=== PATIENT | male | born 1970 | race Caucasian/White ===

== ENCOUNTER 2024-02-16 05:35 | Day surgery (SDC) | payer OTHER ==
[2024-02-10 09:18] LABS: HEMATOCRIT 42.9 % (39.0-48.0); HEMOGLOBIN 14.9 g/dL (13-16.00); MEAN CELL VOLUME 84.1 fL (80.0-100.00); MEAN CORPUSCULAR HEMOGLOBIN 29.2 pg (27.00-32.0); MEAN CORPUSCULAR HGB CONC 34.7 g/dl (32.0-36.0); PLATELET COUNT 253 K/uL (150-450); RED CELL DISTRIBUTION WIDTH 14.9 % (11.5-14.5)
[2024-02-10 09:45] LABS: INR 1.02; PARTIAL THROMBOPLASTIN TIME 29.7 SECONDS (22.0-34.0); PROTHROMBIN TIME 10.7 SECONDS (9.0-11.5)
[2024-02-10 09:46] LABS: CALCIUM 9.1 mg/dL (8.5-10.1); CREATININE SERUM 0.68 mg/dL (0.70-1.30); GFR 121.52; POTASSIUM 4.29 mEq/L (3.5-5.1)
[2024-02-10 10:01] LABS: URINE APPEARANCE Clear; URINE BILIRRUBIN Negative (NEGATIVE); URINE BLOOD Trace; URINE COLOR Yellow; URINE GLUCOSE Negative (NEGATIVE); URINE LEUKOCYTE Negative; URINE NITRATE Negative; URINE PROTEIN Negative (NEGATIVE)
[2024-02-10 10:07] LABS: URINE RBC 7.7 uL (0.0-20.8); URINE WBC 2.4 uL (0.0-23.2)
[2024-02-10 10:19] LABS: URINE EPITHELIAL CELLS 0.6 uL (0.0-38.8)
[~2024-02-16] VITALS: Ht 188 cm; Wt 145.1 kg
[~2024-02-16 05:35] MED LIST: FLEXERIL10 MG PO; LASIX20 MG PO; MEDROL4 MG PO; MOTRIN800 MG PO; NABUMETONE750 MG PO; NEURONTIN600 MG PO; ZESTRIL5 MG PO
[2024-02-16] MEDS ORDERED: CEFTRIAXONE SODIUM 2,000 MG VIAL ONE (07:04)
[2024-02-16] MEDS ORDERED: ENOXAPARIN SODIUM 40 MG/0.4 ML SYRINGE SUBCUTANEO ONE (07:04)
[2024-02-16] MEDS ORDERED: BUPIVACAINE HCL/MPF 0.5% 30ML VIAL ONE (08:15)
[2024-02-16] MEDS ORDERED: METRONIDAZOLE/SODIUM CHLORIDE 500 MG/100 ML PIGGYBACK IV ONE (08:26)
[2024-02-16] MEDS ORDERED: BUPIVACAINE HCL 30 ML VIAL IJ SCH (08:45)
[2024-02-16] MEDS ORDERED: ENOXAPARIN SODIUM 40 MG/0.4 ML SYRINGE SUBCUTANEO SCH (08:45)
[2024-02-16] MEDS ORDERED: CEFTRIAXONE SODIUM 2,000 MG VIAL IV SCH (08:45)
[2024-02-16] MEDS ORDERED: METRONIDAZOLE/SODIUM CHLORIDE 500 MG/100 ML PIGGYBACK IV SCH (08:45)
[2024-02-16] MEDS ORDERED: SUGAMMADEX SODIUM 200 MG/2 ML VIAL IV ONE (10:39)
[2024-02-16] MEDS ORDERED: SUGAMMADEX SODIUM 200 MG/2 ML VIAL IV SCH (10:45)
[2024-02-16] MEDS ORDERED: PERCOCET 5-3251 EACH PO (11:23)
[2024-02-16] MEDS ORDERED: NEURONTIN300 MG PO (11:27)
[2024-02-16] MEDS ORDERED: POLY119PG PO (11:29)
[2024-02-16] MEDS ORDERED: CELEBREX200MG PO (11:29)
== END 2024-02-16 15:50 | disposition home or self-care (01) ==
LOC: CIR.AMB 05:35
PROVIDERS: ATTEND Surgery
DX: K40.20 Bilateral inguinal hernia, without obstruction or gangrene, not specified as recurrent (principal); I10 Essential (primary) hypertension; E66.9 Obesity, unspecified; J45.909 Unspecified asthma, uncomplicated
CPT/HCPCS: 49650; C1781